=== PATIENT | female | born 1985 | race Hispanic/Latino ===

== ENCOUNTER 2024-05-13 12:11 | Outpatient (CLI) | payer OTHER | END 2024-05-13 12:12 | disposition home or self-care (01) | LOC: BICRAD 12:11 | PROVIDERS: ATTEND Family Medicine | DX: R76.11 Nonspecific reaction to tuberculin skin test without active tuberculosis (principal); N92.6 Irregular menstruation, unspecified; E03.9 Hypothyroidism, unspecified | CPT/HCPCS: 71046 ==